=== PATIENT | male | born 1975 | race Caucasian/White ===

== ENCOUNTER 2019-09-28 12:11 | Emergency (ER) | payer BC ==
[~2019-09-28] VITALS: Ht 188 cm; Wt 98.4 kg
[2019-09-28] MEDS ORDERED: ZESTRIL40 MG PO (12:29)
[2019-09-28] MEDS ORDERED: DILTIAZEM ER180 M2 PO (12:29)
[2019-09-28] MEDS ORDERED: SERTRALINE HCL100 MG PO (12:29)
[2019-09-28 14:39] VITALS: BP 118/77
== END 2019-09-28 14:47 | disposition home or self-care (01) ==
LOC: ER 12:11
DX: S61.012A Laceration without foreign body of left thumb without damage to nail, initial encounter (principal); I10 Essential (primary) hypertension; I48.91 Unspecified atrial fibrillation; F32.9 Major depressive disorder, single episode, unspecified; W26.8XXA Contact with other sharp object(s), not elsewhere classified, initial encounter; Y93.89 Activity, other specified; Y92.89 Other specified places as the place of occurrence of the external cause; Y99.0 Civilian activity done for income or pay

== ENCOUNTER 2019-10-13 13:07 | Day surgery (SDC) | payer OTHER ==
[~2019-10-13 13:07] MED LIST: DILTIAZEM ER180 M2 PO; SERTRALINE HCL100 MG PO; ZESTRIL40 MG PO
--- NOTE | 2019-10-15 08:44 | O ---
[facility] [place] [address] OPERATIVE REPORT Name: MOISES LOPEZ Room #: DEP [facility]..#: [id number] Admission: 10/13/19 Attend Phys: Gayle Mcfarlane, Discharge: 10/13/19 Date of : 71 Report #: [id number] THIS REPORT FOR: cc: Jaqueline Floers,Jaqueline Jay,Gayle Ram MD ~ THIS REPORT FOR: //name// CC: Jaqueline Mcfarlane DATE OF SERVICE: 10/13/2019 PREOPERATIVE DIAGNOSIS: Left thumb abscess post-tendon repair. POSTOPERATIVE DIAGNOSIS: Left thumb abscess post-tendon repair. PROCEDURE PERFORMED: Left thumb abscess incision and debridement. SURGEON: Gayle Mcfarlane MD ESTIMATED BLOOD LOSS: 2 mL. COMPLICATIONS: None. CONDITION: Stable. DISPOSITION: Recovery. SPECIMEN: Sent to microbiology. INDICATIONS: The patient is a 44-year-old male who reports a 2-3 day history of increased pain, redness and swelling of the thumb. I found purulent drainage in my office and we set him up for surgery. The risks, benefits, alternatives and complications were discussed including but not limited to infection, inability to resolve the infection necessitating more surgery, damage to blood vessels or nerves tendon problems. Informed consent was obtained in the preoperative holding area. Under sterile conditions, 7 mL of 0.25% Marcaine was injected proximal to the prior surgical site and taking care to avoid any areas of erythema under sterile conditions. He tolerated this well. DESCRIPTION OF PROCEDURE: The patient was brought back to the operating room and placed on the operating table in supine position. Careful attention was placed to avoiding thumb flexion or wrist flexion during the prepping and [facility] [address] [place] [address] OPERATIVE REPORT Name: MOISES LOPEZ Room #: [facility]P [facility].#: [id number] Admission: 10/13/19 Attend Phys: Gayle Mcfarlane, Discharge: 10/13/19 Date of : 71 Report #: [id number] draping. I did the prepping and draping myself. The patient had adequate anesthesia, 3 or 4 and 6 sutures were removed and immediate amount of purulent fluid was obtained. The tendon repair was evaluated. There is about a 5 mm gap at the repair site. Careful attention was placed to avoiding damaging the tendon repair further. The wound was thoroughly irrigated with 2 liters of antibiotic saline. The wound was closed with 4-0 nylon over a Allgood drain. The wound was dressed with Xeroform and sterile gauze. He was placed in a bulky dressing and back into his thumb splint. At the conclusion of case, all sponge and needle counts were correct. The patient was transferred to postoperative recovery room in stable condition. Of note he received vancomycin after the cultures were taken. <ELECTRONICALLY SIGNED> By: Gayle Mcfarlane MD 10/15/19 [id number] Gayle Mcfarlane MD /tomás
== END 2019-10-13 17:10 | disposition home or self-care (01) ==
LOC: OR 13:07 → TBA 13:10 → OR 17:10
DX: T81.49XA Infection following a procedure, other surgical site, initial encounter (principal); L02.512 Cutaneous abscess of left hand; I10 Essential (primary) hypertension; I48.91 Unspecified atrial fibrillation; F32.9 Major depressive disorder, single episode, unspecified; Z98.890 Other specified postprocedural states; Z79.899 Other long term (current) drug therapy; Z79.01 Long term (current) use of anticoagulants; Y83.8 Other surgical procedures as the cause of abnormal reaction of the patient, or of later complication, without mention of misadventure at the time of the procedure
CPT/HCPCS: 50010; 50101; 50386; 56526; 57006; 57091; 70005